=== PATIENT | male | born 1940 | race Caucasian/White ===

== ENCOUNTER 2018-06-30 17:45 | Emergency (ER) | payer MEDICARE, BC ==
[~2018-06-30] VITALS: Ht 175.3 cm; Wt 78.0 kg
[~2018-06-30 17:45] MED LIST: ALBU90OI INH; ALEVE OTC PO; AMLO5; AZIT250 PO; BECL40OI INH; BLOOD PRESSURE MED?; DOCU100 PO; DONE10 PO; DOXY100 PO; FLUC100 PO; FLUSAL1005; HYDACE5 PO; HYDHOMSY PO; HYDR1TAB94 PO; IBUP600 PO; IRBE150 PO; LEVSOD125 PO; LEVSOD150 PO; LEVSOD75; MECL25 PO; MELATONIN 5MG PO; MULTIVITAMIN PO; NYSTRI30T TOP; OXYACE5T PO; PRED20 PO; PROM25 PO; TIOT18; TRAM50 PO; VITAMIN E400 UNI1 PO; [UNRECOGNIZED DRUG - REMARK]
[2018-06-30 19:06] LABS: BASOPHILS ABSOLUTE AUTO 0.06 K/mm3 (0.00-0.23); BASOPHILS PERCENT AUTO 1 % (0-2); EOSINOPHILS ABSOLUTE AUTO 0.19 K/mm3 (0.00-0.68); EOSINOPHILS PERCENT AUTO 2 % (0-6); Hematocrit 41.9 % (37.0-53.0); Hemoglobin 13.8 g/dL (13.5-17.5); IMMATURE GRAN ABSOLUTE AUTO 0.02 K/mm3 (0.00-0.10); IMMATURE GRAN PERCENT AUTO 0 % (0-1); LYMPHOCYTES PERCENT AUTO 18 % (21-46); MONOCYTES ABSOLUTE AUTO 1.15 K/mm3 (0.16-1.47); MONOCYTES PERCENT AUTO 13 % (4-13); Mean Corpuscular HGB 29.6 pg (26.0-34.0); Mean Corpuscular HGB Conc 32.9 g/dL (31.5-36.5); Mean Corpuscular Volume 90 fL (80-100); Mean Platelet Volume 9.7 fL (9.1-12.4); NEUTROPHILS ABSOLUTE AUTO 5.93 K/mm3 (1.96-9.15); NEUTROPHILS PERCENT AUTO 66 % (41-73); Platelet Count 280 K/mm3 (150-400); RDW Coefficient Variation 14.7 % (11.7-14.2); RDW Standard Deviation 48.7 fL (35.1-46.3); Red Blood Cell Count 4.67 M/mm3 (4.30-5.90); White Blood Cell Count 8.95 K/mm3 (4.00-11.30)
[2018-06-30 19:20] LABS: Alanine Aminotransfer (ALT/SGP 18 U/L (12-78); Albumin, Blood 3.4 g/dL (3.4-5.0); Albumin/Globulin Ratio 0.9 (0.8-1.8); Alk Phos 59 U/L (50-136); Anion Gap 8 mmol/L (6-16); Aspartate Aminotrans (AST/SGOT 15 U/L (12-37); Bilirubin, Total 0.4 mg/dL (0.1-1.0); Blood Urea Nitrogen 14 mg/dL (8-24); Bun/Creatinine Ratio 11.4 (12.0-20.0); CO2, Blood 25 mmol/L (21-32); Calcium, Blood 8.6 mg/dL (8.5-10.1); Chloride, Blood 105 mmol/L (98-108); Creatinine, Blood 1.23 mg/dL (0.60-1.20); Globulin, Blood 3.8 g/dL (2.2-4.0); Glomerular Filtration Rate >60 (60-); Glucose, Blood 126 mg/dL (70-99); Potassium, Blood 3.8 mmol/L (3.5-5.5); Sodium, Blood 138 mmol/L (136-145); Total Protein, Blood 7.2 g/dL (6.4-8.2)
[2018-06-30] MEDS ORDERED: XARELTO20 MG PO (22:47)
== END 2018-06-30 23:35 | disposition home or self-care (01) ==
LOC: ER 17:45
PROVIDERS: Physician Assistant
DX: I82.C12 Acute embolism and thrombosis of left internal jugular vein (principal); J44.9 Chronic obstructive pulmonary disease, unspecified; E03.9 Hypothyroidism, unspecified; F03.90 Unspecified dementia, unspecified severity, without behavioral disturbance, psychotic disturbance, mood disturbance, and anxiety; Z88.0 Allergy status to penicillin; Z88.5 Allergy status to narcotic agent; Z79.899 Other long term (current) drug therapy; Z87.891 Personal history of nicotine dependence
CPT/HCPCS: 36415; 80053; 85025; 93971; 99284-25

== ENCOUNTER 2020-07-19 20:14 | Observation (INO) | payer MEDICARE, BC ==
[~2020-07-19] VITALS: Ht 172.7 cm; Wt 102.1 kg
[~2020-07-19 20:14] MED LIST changes: +EUTHYROX125 MCG PO; +GABA800 PO; +TYLENOL PM EX-1 EAC1; +XARELTO20 MG PO
[2020-07-19] MEDS ORDERED: QUETIAPINE FUMA50 M2 PO (20:46)
[2020-07-19 21:23] LABS: BASOPHILS ABSOLUTE AUTO 0.12 K/mm3 (0.00-0.23); BASOPHILS PERCENT AUTO 1 % (0-2); EOSINOPHILS ABSOLUTE AUTO 0.47 K/mm3 (0.00-0.68); EOSINOPHILS PERCENT AUTO 6 % (0-6); Hematocrit 43.2 % (37.0-53.0); Hemoglobin 13.6 g/dL (13.5-17.5); IMMATURE GRAN ABSOLUTE AUTO 0.02 K/mm3 (0.00-0.10); IMMATURE GRAN PERCENT AUTO 0 % (0-1); LYMPHOCYTES ABSOLUTE AUTO 1.75 K/mm3 (0.84-5.20); LYMPHOCYTES PERCENT AUTO 21 % (21-46); MONOCYTES ABSOLUTE AUTO 0.95 K/mm3 (0.16-1.47); MONOCYTES PERCENT AUTO 11 % (4-13); Mean Corpuscular HGB 26.9 pg (26.0-34.0); Mean Corpuscular HGB Conc 31.5 g/dL (31.5-36.5); Mean Corpuscular Volume 85 fL (80-100); Mean Platelet Volume 9.9 fL (9.1-12.4); NEUTROPHILS ABSOLUTE AUTO 5.07 K/mm3 (1.96-9.15); NEUTROPHILS PERCENT AUTO 61 % (41-73); Platelet Count 309 K/mm3 (150-400); RDW Coefficient Variation 16.8 % (11.7-14.2); RDW Standard Deviation 52.3 fL (35.1-46.3); Red Blood Cell Count 5.06 M/mm3 (4.30-5.90); White Blood Cell Count 8.38 K/mm3 (4.00-11.30)
[2020-07-19 21:30] LABS: Source, Urine Voided
[2020-07-19 21:33] LABS: Appearance, Urine Clear (Clear); Blood, Urine Neg (Neg); Color, Urine Amber (P-Yellow); Glucose Qualitative, Urine Neg (Neg); Ketones, Urine 1+ (Neg); Leukocyte Esterase, Urine Neg (Neg); Nitrite, Urine Neg (Neg); Protein, Urine 1+ (Neg); Specific Gravity, Urine 1.025 (1.003-1.022); Urobilinogen, Urine 1+ (Normal)
[2020-07-19 21:38] LABS: Bilirubin, Urine 1+ (Neg)
[2020-07-19 21:44] LABS: Alanine Aminotransfer (ALT/SGP 16 U/L (12-78); Albumin, Blood 3.3 g/dL (3.4-5.0); Albumin/Globulin Ratio 0.8 (0.8-1.8); Alk Phos 72 U/L (50-136); Anion Gap 5 mmol/L (6-16); Aspartate Aminotrans (AST/SGOT 13 U/L (12-37); Bilirubin, Total 0.3 mg/dL (0.1-1.0); Blood Urea Nitrogen 16 mg/dL (8-24); Bun/Creatinine Ratio 11.9 (12.0-20.0); CO2, Blood 25 mmol/L (21-32); Calcium, Blood 8.4 mg/dL (8.5-10.1); Chloride, Blood 110 mmol/L (98-108); Creatinine, Blood 1.35 mg/dL (0.60-1.20); Ethanol (Alcohol), Blood, Med <3 mg/dL; Globulin, Blood 4.1 g/dL (2.2-4.0); Glomerular Filtration Rate 54 (60-); Glucose, Blood 136 mg/dL (70-99); Potassium, Blood 3.9 mmol/L (3.5-5.5); Salicylate <1.7 mg/dL (2.8-20.0); Sodium, Blood 140 mmol/L (136-145); Total Protein, Blood 7.4 g/dL (6.4-8.2)
[2020-07-19 21:45] LABS: U Amphetamine Screen Not Detected; U Barbituate Screen Not Detected; U Benzodiazapine Screen Not Detected; U Buprenorphine Screen Not Detected; U Cannabinoids Screen Not Detected; U Cocaine Screen Not Detected; U Methadone Screen Not Detected; U Methamphetamine Screen Not Detected; U Opiates Screen Not Detected; U Oxycodone Screen Not Detected; U Phencyclidine Screen Not Detected; U Propoxyphene Screen Not Detected
[2020-07-19 21:46] LABS: Acetaminophen, Random <2.0 ug/mL (10.0-30.0)
--- NOTE | 2020-07-20 04:40 | NUR ---
BOTTOM TURNER SUMMARY ASSUMED CARE FOR PT AT 0255. ALERT AND ORIENTED TO SELF ONLY. AMBULATING IN [place] ON ARRIVAL, DIFFICULT TO REDIRECT TO ROOM. CURRENTLY SITTING NEXT TO NURSES STATION, EATING FOOD AND READING MAGAZINE. APPEARS CALM AT THIS TIME. NO ACUTE DISTRESS NOTED. WILL CONTINUE TO MONITOR AND REPORT TO ONCOMING RN.
[2020-07-20 09:36] LABS: BASOPHILS ABSOLUTE AUTO 0.13 K/mm3 (0.00-0.23); BASOPHILS PERCENT AUTO 1 % (0-2); EOSINOPHILS ABSOLUTE AUTO 0.42 K/mm3 (0.00-0.68); EOSINOPHILS PERCENT AUTO 4 % (0-6); Hematocrit 44.8 % (37.0-53.0); Hemoglobin 14.1 g/dL (13.5-17.5); IMMATURE GRAN ABSOLUTE AUTO 0.01 K/mm3 (0.00-0.10); IMMATURE GRAN PERCENT AUTO 0 % (0-1); LYMPHOCYTES ABSOLUTE AUTO 3.18 K/mm3 (0.84-5.20); LYMPHOCYTES PERCENT AUTO 31 % (21-46); MONOCYTES ABSOLUTE AUTO 1.11 K/mm3 (0.16-1.47); MONOCYTES PERCENT AUTO 11 % (4-13); Mean Corpuscular HGB 26.9 pg (26.0-34.0); Mean Corpuscular HGB Conc 31.5 g/dL (31.5-36.5); Mean Corpuscular Volume 85 fL (80-100); Mean Platelet Volume 9.8 fL (9.1-12.4); NEUTROPHILS ABSOLUTE AUTO 5.46 K/mm3 (1.96-9.15); NEUTROPHILS PERCENT AUTO 53 % (41-73); Platelet Count 341 K/mm3 (150-400); RDW Coefficient Variation 16.5 % (11.7-14.2); RDW Standard Deviation 51.8 fL (35.1-46.3); Red Blood Cell Count 5.25 M/mm3 (4.30-5.90); White Blood Cell Count 10.31 K/mm3 (4.00-11.30)
[2020-07-20 09:52] LABS: Albumin, Blood 3.7 g/dL (3.4-5.0); Albumin/Globulin Ratio 0.8 (0.8-1.8); Bilirubin, Total 0.5 mg/dL (0.1-1.0); Bun/Creatinine Ratio 11.6 (12.0-20.0); Calcium, Blood 8.7 mg/dL (8.5-10.1); Creatinine, Blood 1.29 mg/dL (0.60-1.20); Globulin, Blood 4.5 g/dL (2.2-4.0); Total Protein, Blood 8.2 g/dL (6.4-8.2)
[2020-07-20] MEDS ORDERED: TAMS.4ER PO (14:01)
--- NOTE | 2020-07-20 17:36 | NUR ---
PT AOX1 AND INDEPENDENT WALKING AROUND. PT NEEDS REDIRECTED MULTIPLE TIMES THROUGHOUT THE DAY. PT SPENT MOST OF HIS TIME SITTING IN THE [place] IN A CHAIR. PT WILL NOT SAY HE NEEDS THE RESTROOM AND WILL START WALKING AROUND MORE. RESTROOM HAS TO BE SHOWN TO HIM AND HE HAS TO BE ASKED MULTIPLE TIMES IF HE HAS TO USE IT. PT HAS TROUBLE STAYING IN ONE SPOT AND WANT TO WANDER AROUND. PT HAS TO BE REDIRECTED FROM WALKING INTO ROOMS. PT DOES NOT SAY HE IS IN PAIN. WILL CONTINUE TO MONITOR.
--- NOTE | 2020-07-20 18:24 | NUR ---
PT IS SUNDOWNING AND GETTING MORE AGITATED. PT IS FOLDING THINGS AND GETTING UP AND DOWN MORE. CALLED DR BECERRIL AND SHE ORDERED PRN DOSE OF SEROQUEL TO BE ADDED TO EMAR. PT HAS BEEN GIVEN NEW DOSE WILL CONTINUE TO MONITOR.
--- NOTE | 2020-07-21 03:52 | NUR ---
SHIFT SUMMARY ASSUMED CARE OF PT AT 1900. PT IS A/O TO NONE. PT IS NOT EASILY REDIRECTED. PT WONDERED THE HALLS AT THE BEGINNING OF THE SHIFT AND THEN LAYED DOWN FOR 1 HOUR, THEN HE PROCEEDED TO GET UP AND FIDGET WITH EVERYTHING IN HIS ROOM. PT WAS MEDICATED WITH HIS PM SEROQUEL, CRUSHED IN PUDDIN, AND HALDOL. THIS WAS INEFFECTIVE AND PT BECAME UN-SAFE TO HIMSELF WHEN HE WOULD TURN ON THE FAUCET WTER AND WALK ON THE WATER. PT WAS RESTRAINED WITH A VEST FOR HIS SAFETY AND MEDICATED WITH ZYPREXA. PT IS STILL AGITATED AND PULLING AT HE MARK AND ATTENDS. PT HAS NOT SLEPT AT ALL THIS WHOLE SHIFT. HEART SOUNDS REGULAR, LUNG SOUNDS HAVE CRAKELS AT HE BASES. PT WAS CONTINENT/ INCONTINENT. PT BLADDER SCANNED TO SEE IF THIS IS WHY HE WAS AGITATED, BLADDER SCAN SHOWS 99ML. PT DRANK 480ML WATER AT BEDSIDE. PT FREQUENTLY REPOSITIONED FOR COMFORT. PT BLE ARE EDEMADOUS AND HAVE FLAKY DRY SKIN ON THEM, ONCE PT WAS IN BED, THE EDEMA DECREASED SLIGHTLY. CALL LIGHT IN REACH, BED IN LOWEST POSTION, BED ALARM ON, CAMERA MONITORING IN PROGRESS.
--- NOTE | 2020-07-21 16:41 | NUR ---
SHIFT SUMMARY PATIENT DENIES PAIN, NAUSEA, AND HSORTNESS OF BREATH. PATIENT UP SBA INROOM. PATIENT ORIENTED TO SELF ONLY. IMPULSIVE AND ATTEMPTS TO WANDER FREQUENTLY. MARK DISCONTINUED AT 0800. PRN SEROQUEL FOR AGITATION THIS AFTERNOON.
--- NOTE | 2020-07-22 04:33 | NUR ---
SHIFT SUMMARY ASSUMED CARE OF PT AT 1900. PT IS ALERT BUT NOT ORIENTED AT ALL. PT IS DIFFICULT TO REDIRECT AND GETS OUT OF BED AND HIS CHAIR REPEATIVLY. NIGHTLY DOSE OF SERIQUEL GIVEN, WHICH MADE THE PATIENT MORE CALM THAN YESTERDAY BUT PT BECAME AGITATED AGAIN AND STARTED TO GET OUT OF BED. PT BECAME ANGRY WITH STAFF WHEN REDIRECTED AND WAS PUT IN A MARK VEST AT 2230 TO PREVENT A FALL AND TO DECREASE TENSION WITH STAFF. HOSPITALIST AND CHARGE NURSE NOTIFED. PT WAS ABLE TO REST EASY IN HIS BED AFTER THE RESTRAINT WAS PUT ON. PT MUMBLED AND TALKED TO HIMSELF AND WAS CALM. PT WAS FINALLY ABLE TO SLEEP AT 0430 IN THE AM. LUNG SOUNDS CLEAR, HEART SOUNDS REGULAR. CALL LIGHT IN REACH, BED IN LOWEST POSTION, BED ALARM ON.
--- NOTE | 2020-07-22 15:50 | NUR ---
BED, MARK IN PLACE, CALL LIGHT IN REACH.
--- NOTE | 2020-07-22 16:58 | NUR ---
SHIFT SUMMARY PATIENT ORIENTED ONLY TO SELF. PATIENT DENIES PAIN WHEN ASKED, SHOWS NO NON VERBAL SIGNS OF DISTRESS. PATIENT UP TO BR SBA AND UP FOR WALK IN HALLWAY. PATIENT IN MARK FOR FALL RISK. EATING AND DRINKING WELL. VISITED BRIEFLY TODAY.
--- NOTE | 2020-07-23 05:13 | NUR ---
SHIFT SUMMARY PT HAS ADVANCED DEMENTIA. ALERT TO SELF ONLY. SPEECH IS NONSENSICAL. PT REMAINS IN MARK VEST HE IS CONFUSED AND NOT EASILY REDIRECTED AND WILL NOT REMAIN IN BED. PT AWAKE MUCH OF THE NIGHT. FIDGETS WITH ANYTHING HE CAN GET HIS HANDS ON. INCONTINENT X 1 THIS EVENING OTHERWISE HAS NOT VOIDED. DENIES ANY PAIN, NO NONVERBAL S/S OF PAIN. VITAL SIGNS STABLE. AWAITING PLACEMENT. WILL CONTINUE TO MONITOR AND REPORT TO DAY RN.
--- NOTE | 2020-07-23 18:18 | NUR ---
SHIFT SUMMARY. LETHARGIC THIS AM, APPEARED TO SLEEP MOST OF THE AM, AWAKENS WITH VERBAL STIMULATION. MORE ALERT THIS AFTERNOON, DISORIENTATED, UNABLE TO ANSWER ANY QUESTIONS. CONTINUES TO ATTEMPT TO GET OOB WITHOUT ASSITANCE, FOUND WITH LEGS OVER SIDE OF BED SEVERAL TIMES THIS AFTERNOON. BED ALARM AND MARK RESTRAINT VEST CONTINUED FOR SAFETY. PT WITH POOR ORAL INTAKE, ASSISTANCE REQUIRED WITH EATING MEALS ALTHOUGH PT REFUSES MORE THAN JUST A FEW BITES. PT REFUSED MOST ATTEMPTS OF ORAL CARE BY WOOD DIE MAKER AND THIS RN. PT WITH COARSE/CRACKLES IN THE MID TO LOWER LOBES BILATERALY, PT WITH ELEVATED TEMPERATURE THIS EVENING, DR. BECERRIL NOTIFIED AND RECIEVED ORDERS FOR CXR-1V, APAP 650 PO Q6 PRN, AND ST EVAL. PT WITH NO VOID THIS SHIFT, BLADDER SCANNED AT APPROXIMATELY 1400 WITH 230ML OBSERVED. 1800 BLADDER SCAN REPEATED, 600 ML OBSERVED, STRAIGHT CATH PERFORMED AND 600ML DRAINED. NO FAMILY IN TO VISIT OR CALLS. NO OTHER CHANGES OR CONCERNS.
--- NOTE | 2020-07-23 19:40 | NUR ---
ASSUMED CARE. ALERT ORIENTED TO SELF ONLY, MUBLES TO SELF, DOES NOT RESPOND WHEN ASKED QUESTIONS. IS PLAYING WITH SHEET, TALKING TO OTHER PEOPLE THAT ARE NOT IN THE ROOM. DOES NOT FOLLOW DIRECTION. IS QUIET AND APPEARS CONTENT WITH SELF. NO SIGNS OF DISCOMFORT OR PAIN WHEN MOVING PATIENT OR PALPITATING. ATTENDS IS DRY. LUNG SOUNDS ARE HARD TO HEAR DO TO PATIENT NOT FOLLOWING DIRECTIONS AND TALKS TO SELF, BUT SOUNDED LIKE FINE CRACKLES IN BASES. COUGH IS NOTED, DRY AT THIS TIME. RESTRAINTS CHECKED WITH CIRCULATION CHECKED. WILL CONTINUE TO MONITOR. BED ALARM IS ON.
--- NOTE | 2020-07-23 22:24 | NUR ---
JAXON WAS SCOOTED DOWN IN BED, REPOSITIONED UP IN BED, RESTRAINTS WERE RE-TIED. STILL TALKING TO SELF BUT APPEARS HE IS STARTING TO FALL ASLEEP. BED ALARM IS ON. FOUND HIS GLASSES IN THE BED, HE HAD BROKE ONE OF THE EAR PEICES OFF OF IT, FOUND IT UNDERNEATH HIM. PLACED ON TABLE IN BAG.
--- NOTE | 2020-07-24 00:33 | NUR ---
ROUNDING ON THE PATIENT, HE HAD THE CONTROLLER IN HIS HAND WITH EYES CLOSED AND TRYING TO EAT IT. PUT IT UP BY HIS HEAD AND REPOSITIONED HIS RESTRAINTS, CIRCULATION CHECKED. TUCKED COVERS AROUND HIM TO KEEP HIM WARM. WILL CONTINUE TO MONITOR.
--- NOTE | 2020-07-24 05:53 | NUR ---
SHIFT SUMMARY: ALERT ORIENTED TO SELF ONLY. SEVERE DEMENTIA, TALKS TO SELF HAS VISUAL HULLUCINATIONS, MUMBLES ALL THE TIME, MESSING WITH HIS ATTENDS AND BLANKETS. DOES NOT FOLLOW DIRECTIONS OR REDIRECT. NO SIGNS OF PAIN OR DISCOMFORT. VS WNL, AFEBRILE. BLADDER SCAN X2 ONE 175, AND 875 THIS AM. STRAIGHT CATH X1 GOT 900CC OUT. SLEPT WELL THROUGHOUT THE NIGHT. RESTRAINTS REMAINED ON. DID HAVE SOME GURGLING THIS MORNING LIKE HE NEEDED TO COUGH, EVENTUALLY HE DID CLEAR HIS THROAT AFTER SITTING HIM UP. BED ALARM ON, CALL LIGHT IN REACH.
--- NOTE | 2020-07-24 07:58 | NUR ---
PT ON REMOTE MONITORS CONFIRMED WITH ABEL LAMB THAT PT IS VISIBLE ON MONITORS.
--- NOTE | 2020-07-24 18:39 | NUR ---
SHIFT SUMMARY PT AxOx0. SEVERE DEMENTIA. MARK VEST RESTRAINT DC'D THIS AM. PT TOLERATED WELL. NO IMPULSIVE BEHAVIOR. SPEECH EVAL TODAY. CHANGED DIET TO PUREE, NECTAR THICK LIQUIDS WITH A FEEDER. PT UP IN RECLINER x2 TODAY. SBA. PT REFUSED RAMONITA HOSE. NO URINE OUTPUT T/O SHIFT. MONITORED VIA BLADDER SCANNER AND STRAIGHT CATH PER ORDER AT APPROX 1830 WITH 600CC URINE OUTPUT. VITAL SIGNS REVIWED. PT RESTING COMFORTABLY IN BED WITH CALL LIGHT IN REACH.
--- NOTE | 2020-07-24 19:50 | NUR ---
ASSUMED CARE. JAXON IS CONFUSED, TALKING TO SELF IN CONVERSATION THAT IS ALL OVER THE PLACE. APPEARS TO BE VERY CONTENT IN HIS CONVERSATION. DOES NOT ANSWER QUESTIONS OR FOLLOWS DIRECTION. LUNG SOUNDS ARE CRACKLES THROUGHOUT, OCCATIONAL COUGH, NO PRODUCTION. SUCTION IS AT BEDSIDE. SKIN DRY BUT CLEAR OF ANY WOUNDS OR RASHES. ATTENDS DRY. WILL BLADDER SCAN. BED ALARM ON.
--- NOTE | 2020-07-25 00:54 | NUR ---
BLADDER SCAN IS READING THE SAME PREVIOUS PATIENT THAT WAS SCANNED. STRAIGHT CATHED PATIENT, GOT 550 OUTPUT. BLADDER SCAN ONLY SHOWED 420.
--- NOTE | 2020-07-25 05:55 | NUR ---
SHIFT SUMMARY: JAXON HAS BEEN PLEASANTLY CONFUSED, KEEPING SELF CONTENT IN THE ROOM WITH HIS HULLUCINATIONS. NEVER TRIED TO GET OUT OF BED. TOOK HIS MEDICATION WITH APPLESAUCE. NO BM, ATTENDS REMAINED DRY. BLADDER SCANS 447, 419 BUT DID NOT BELEIVE SECOND SCAN, THEREFORE DID STRAIGHT CATH AND GOT 550 OUT OF YELLOW URINE. SCAN THIS AM WAS 75. JAXON SLEPT WELL, NO ACUTE CHANGES, VS WNL. BED ALARM IS ON, CALL LIGHT IN REACH.
--- NOTE | 2020-07-25 17:57 | NUR ---
PATIENT IS VERY CONFUSED AND DISORIENTED. FEVER NOTED THIS EVENING @ 101.3, TYLENOL ADMINISTERED. MAX 2 ASSIST WITH TRANSFERS. PATIENT CONTINUES TO RETAIN URINE; STRAIGHT CATH'ED AND GOT 350cc. PATIENT SITTING UPRIGHT AT THIS TIME, SAFETY INTERN ASSISTING PATIENT WITH HIS DINNER AT THIS TIME. NO OTHER ACUTE CHANGES NOTED THIS SHIFT. WILL CONTINUE TO MONITOR AND PROVIDE CARE NEEDED.
--- NOTE | 2020-07-26 05:12 | NUR ---
SHIFT SUMMARY: VSS. AFEB. AAO TO SELF. TALKS TO SELF ALMOST CONTINUOUSLY WHILE AWAKE. LAUGHS OCCASIONALLY DURING HIS RUNNING COMMENTARY. SPEECH GARBLED AND DIFFICULT TO UNDERSTAND. DOES NOT RESPOND TO QUESTIONS. DEMONSTRATES R ARM PAIN W/ANY MOVEMENT OF THE ARM. REMAINS IN BED W/NO ATTEMPTS TO SELF T/F. BED ALARM ON AND CAMERA MONITORING IN PLACE. DYSPHAGIA PRECAUTIONS. LS W/ RHONCHI BILATERALLY AND DIM BASES. 02 95% ON RA. APPEARS TO HAVE SLEPT WELL THROUGH MUCH OF THE NIGHT. NO VOID OF YET, BLADDER SCAN SHOWED 170CC AT 0200.
--- NOTE | 2020-07-26 18:38 | NUR ---
SHIFT SUMMARY PT HAS BEEN SLEEPING ON AND OFF THROUGH DAY. OCC HEARD TALKING TO HIMSELF IN HIS ROOM. QUITE HARD OF HEARING. HIT AND MISS WITH FOLLOWING DIRECTIONS. AT SUPPERTIME PT AWAKE AND ALERT. DID SOUND WET A FEW TIMES DURING MEAL. WHEN ENCOURAGED TO COUGH MOISTURE WOULD REOLVE. AT END OF MEAL VOICE AND BREATHING SOUNDED CLEAR.
--- NOTE | 2020-07-27 05:14 | NUR ---
SHIFT SUMMARY: VSS. AFEB. AAOX1. PT MORE INTERACTIVE TONIGHT, RESPONDING TO QUESTIONS AND DIRECTIONS. VERBAL RESPONSE CONT TO BE GARBLED AND DIFFICULT TO UNDERSTAND HOWEVER. CONT TO TALK TO SELF WHILE AWAKE AND LAUGH OCC IN RESPONSE TO HIS OWN STATEMENTS. RESISTANT TO TURNS. NO VOID TONIGHT. BLADDER SCAN SHOWED 201CC. RHONCHI AUSC TO B LOBES, BASES DIM. PRODUCTIVE COUGH. SUCTION USED TO HELP CLEAR. SMALL AMT OF YELLOW SPUTUM OUT. ORAL CARE PERFORMED. NO COUGHING WHILE PT WAS UPRIGHT EATING APPLESAUCE. 02 SAT 96% ON RA. APPEARS TO BE SLEEPING WELL THROUGH MUCH OF THE NIGHT. BED LOW, BED ALARM ON, CAMERA MONITORING IN PLACE.
--- NOTE | 2020-07-27 17:47 | NUR ---
SHIFT SUMMARY PT AXO X0 AND SOLOMON. SLEEPING HEAVILY THROUGHOUT THE DAY. REPOSITIONED Q2. BLADDER SCAN AT 1240, STRAIGHT CATH AT THAT TIME, 800ML OUT. NO ACUTE CHANGES THIS SHIFT. BED IN LOW POSITION, CALL LIGHT WITHIN REACH. VSS. PT RIGHT ARM PAINFUL ONLY WITH REPOSITIONING.
[2020-07-28 05:51] LABS: BASOPHILS ABSOLUTE AUTO 0.08 K/mm3 (0.00-0.23); BASOPHILS PERCENT AUTO 1 % (0-2); EOSINOPHILS ABSOLUTE AUTO 0.24 K/mm3 (0.00-0.68); EOSINOPHILS PERCENT AUTO 3 % (0-6); Hematocrit 38.5 % (37.0-53.0); Hemoglobin 12.1 g/dL (13.5-17.5); IMMATURE GRAN ABSOLUTE AUTO 0.01 K/mm3 (0.00-0.10); IMMATURE GRAN PERCENT AUTO 0 % (0-1); LYMPHOCYTES ABSOLUTE AUTO 1.63 K/mm3 (0.84-5.20); LYMPHOCYTES PERCENT AUTO 21 % (21-46); MONOCYTES PERCENT AUTO 15 % (4-13); Mean Corpuscular HGB 26.9 pg (26.0-34.0); Mean Corpuscular HGB Conc 31.4 g/dL (31.5-36.5); Mean Corpuscular Volume 86 fL (80-100); Mean Platelet Volume 10.3 fL (9.1-12.4); NEUTROPHILS ABSOLUTE AUTO 4.74 K/mm3 (1.96-9.15); NEUTROPHILS PERCENT AUTO 60 % (41-73); Platelet Count 312 K/mm3 (150-400); RDW Coefficient Variation 16.3 % (11.7-14.2); RDW Standard Deviation 51.8 fL (35.1-46.3)
[2020-07-28 06:44] LABS: Alanine Aminotransfer (ALT/SGP 29 U/L (12-78); Albumin, Blood 2.3 g/dL (3.4-5.0); Albumin/Globulin Ratio 0.5 (0.8-1.8); Alk Phos 57 U/L (50-136); Anion Gap 3 mmol/L (6-16); Aspartate Aminotrans (AST/SGOT 34 U/L (12-37); Bilirubin, Total 0.3 mg/dL (0.1-1.0); Blood Urea Nitrogen 22 mg/dL (8-24); Bun/Creatinine Ratio 18.8 (12.0-20.0); CO2, Blood 29 mmol/L (21-32); Calcium, Blood 8.4 mg/dL (8.5-10.1); Chloride, Blood 105 mmol/L (98-108); Creatinine, Blood 1.17 mg/dL (0.60-1.20); Globulin, Blood 4.4 g/dL (2.2-4.0); Glomerular Filtration Rate >60 (60-); Glucose, Blood 102 mg/dL (70-99); Potassium, Blood 4.2 mmol/L (3.5-5.5); Sodium, Blood 137 mmol/L (136-145); Total Protein, Blood 6.7 g/dL (6.4-8.2)
--- NOTE | 2020-07-28 06:48 | NUR ---
BLADE GROOVER SUMMARY PT A/O X0. VERY HO-CHUNK. SLEPT MOSTLY ALL NIGHT. DENIES PAIN. PT BLADDER SCANNED AND STRAIGHTED CATHED TONIGHT. VSS. PT'S RIGHT ELBOW IS RED, SWOLLEN, AND WARM TO TOUCH. DENIES PAIN TO SITE. HOSPITALIST DR. BECERRIL NOTIFIED, US OF R ELBOW ORDERED.
--- NOTE | 2020-07-28 18:22 | NUR ---
SHIFT SUMAMRY: NO ACUTE CHANGES TO REPORT THIS SHIFT. PT A&O X0 SLEEPING T/O SHIFT; TOO DROWSY TO SAFELY ADMINISTER PO MEDS. ASPIRATION PRECAUSTIONS. AWAITING PLACEMENT.
--- NOTE | 2020-07-29 04:51 | NUR ---
GUN NUMBER SUMMARY PT SLEPT WELL ALL NIGHT. A/O X0. NURSE HELD BEDTIME MEDS GABAPENTIN AND SEROQUEL DUE TO DROWNSINESS. PT IS AROUSIBLE TO VOICE. REPOSITIONED THROUGHOUT THE NIGHT. VSS. BLADDER SCANNED AT 0355 WITH 114ML IN BLADDER. NO ACUTE CHANGES.
--- NOTE | 2020-07-29 19:01 | NUR ---
SHIFT SUMMARY: NO ACUTE CHANGES TO REPORT THIS SHIFT. PT ALERT; ORIENTED TO SELF; COOPERATIVE WITH CARE. BLADDER SCAN THIS SHIFT; >750 RESIDUAL; STRAIGHT CATH X1; 1050ML OUT; HOSPITALIST NOTIFIED; NEW ORDER FOR FLOMAX BID. PT UP TO CHAIR c 2-ASSIST. ASPIRATION PRECAUTIONS. AWAITING PLACEMENT. REPORT GIVEN TO ONCOMING RN.
--- NOTE | 2020-07-30 06:21 | NUR ---
HEALTH CARE MARKETING MANAGER SUMMARY PT A/O X0. SLEPT ALL NIGHT TONIGHT. Q2 REPOSITIONG PROVIDED. RIGHT ELBOW ELEVATED ON PILLOW TO HELP DECREASE SWELLING. BLADDER SCANNED AND STRAIGHT CATHED THIS SHIFT. BED ALARM ON, CALL MURPHY WITHIN REACH, CAMERA MONITORED. WILL GIVE REPORT TO AM RN.
--- NOTE | 2020-07-30 17:54 | NUR ---
SHIFT SUMMARY- PT HAS SLEPT FOR MOST OF THIS SHIFT. HE HAS BEEN TAKING HIS MEDICATIONS WELL. HIS APPETITE IS POOR. HE DID NOT VOID THIS SHIFT BUT BLADDER SCANS SHOWED LESS THAN 250 ML.
--- NOTE | 2020-07-31 06:08 | NUR ---
SUMMARY: PT CONFUSED AND DOESN'T ANSWER Q'S APPROPRIATELY BUT IS ABLE TO SPECIFY SOME NEEDS. TYLENOL WAS RECIEVED PRN FOR C/O OF BACK PAIN FOR GOOD EFFECT. TURN SCHEDULE MAINTAINED D/T BEDREST BUT PT REMAINS STIFF AND RESISTANT TO REPOSITIONING. MEDS TOLERATED CRUSHED IN APPLESAUCE AND FLUIDS ENCOURAGED WHEN STAFF IN ROOM. HE DIDN'T VOID TONIGHT BUT BLADDER SCANS WERE BETWEEN 276-366 MLS W/STRAIGHT CATH NOT NECESSARY PER ORDERS TO DO SO FOR BLADDER SCAN >400 MLS. HE SLEPT MAJORITY OF NOCTE. VSS/AFEBRILE. NO ACUTE CHANGES. [facility], FAMILY PLANS TO ATTEND. WILL ENSURE DAY STAFF ARE AWARE AND REPORT TO DAY RN.
--- NOTE | 2020-07-31 17:24 | NUR ---
SHIFT SUMMARY- PT IS PLESANT AND COOPERATIVE. HE HAS SLEPT FOR MUCH OF THIS SHIFT. HIS BLADDER SCAN WAS ELEVATED. MEETING WITH [facility] TODAY WITH FAMILY. PT ENCOURAGED SEVERAL TIMES TO VOID AND WAS UNSUCCESSFUL. STRAIGHT CATH PREFORMED. APPETITE IS POOR. HE WAS UP TO THE CAIR THIS AFTERNOON.
--- NOTE | 2020-08-01 02:40 | NUR ---
PT HASN'T VOIDED YET THIS SHIFT. BLADDER SCAN WAS 236 MLS BUT NO NEED TO STRAIGHT CATH AT THIS TIME PER PARAMETERS TO DO SO WHEN SCAN >400 MLS.
--- NOTE | 2020-08-01 05:04 | NUR ---
SUMMARY: PT CONFUSED AND SLEPT MAJORITY OF NOCTE. HE DOESN'T ANSWER Q'S APPROPRIATELY BUT IS ABLE TO CONVEY SOME VERY BASIC NEEDS. HE AWOKE FOR PT CARE/ADL'S AND MED ADMINISTRATION. PT TOLERATES PILLS CRUSHED IN APPLESAUCE. TURN SCHEDULE MAINTAINED AND PT IS STIFF/RIGID W/REPOSITIONING. HE DENIED PAIN AND ALL OTHER COMPLAINTS. STAFF ATTEMPTED TO ASSIST PT W/URINAL AND ENCOURAGED VOIDING BUT HE CONT'S TO LACK SENSATION AND/OR ABILITY TO VOID. BLADDER SCAN WAS [address]CATH NOT REQUIRED PER RX TO DO SO WHEN >400 MLS. SCROTUM CONT'S SWOLLEN AND CELLULITIS TO R.ELBOW SEEMS TO BE IMPROVING. NO ACUTE CHANGES, VSS/AFEBRILE. WCTM AND REPORT TO DAY RN.
--- NOTE | 2020-08-01 15:22 | NUR ---
PATIENT IS ALERT. HE IS CONFUSED. HIS SPEECH IS NON-SENSICAL. PATIENT IS A FEEDER, PUREE DIET. BLADDER SCAN IS ORDERED ONCE A SHIFT, WHICH SHOWED OVER 400ML URINE. PATIENT WAS STRAIGHT CATHED THIS MORNING. PATIENT IS UP TOT HE CHAIR FOR ALL MEALS. HE IS IN BED AT THIS TIME. WILL CONTINUE TO MONITOR
--- NOTE | 2020-08-01 17:38 | NUR ---
PATIENT IS ALERT. HIS SPEECH IS NONSENSICAL. HE IS A 2PA UP TO THE RECLINER. BLADDER SCAN AT 1730 SHOWED 117ML OF URINE. VITALS ARE WNL. NO COMPLAINTS OF PAIN. PATIENT HAS NOT TRIED TO GET OUT OF BED OR THE CHAIR ON HIS OWN. WILL CONTINUE TO MONITOR
--- NOTE | 2020-08-02 03:45 | NUR ---
SHIFT SUMMARY PATIENT HAD NO ACUTE CHANGES OBSERVED. AXOX TO SELF WITH NON-SENSICAL SPEECH. NO IV ACCESS. TWO ASSIST TO BSC. VSS/AFEBRILE. DENIES PAIN, SOB, AND N/V. NO BED EXIT ALARM ATTEMPTS. CALL LIGHT IN REACH. BED IN LOWEST POSITION. WILL CONTINUE TO MONITOR UNTIL DAY SHIFT NURSE ASSUMES CARE.
--- NOTE | 2020-08-02 18:25 | NUR ---
PATIENT IS ALERT. HE IS CONFUSED. HIS SPEECH IS NONSENSICAL. PATIENT IS EASILY REDIRECTABLE. PATIENT IS RETAINING URINE. BLADDER SCAN THIS SHIFT SHOWED 584 ML AND 550 ML URINE. THE PATIENT WAS STRAIGHT CATHED TWICE TODAY. PATIENT SPENT A LOT FO HIS TIME UP IN THE RECLINER. 2PA TO TRANSFER. WILL CONTINUE TO MONITOR
--- NOTE | 2020-08-02 21:58 | NUR ---
HAVING VISUAL HALLUCINATIONS ON THE MARLEY AT THIS TIME.
--- NOTE | 2020-08-03 04:42 | NUR ---
SHIFT SUMMARY PATIENT HAD NO ACUTE CHANGES OBSERVED. AXOX TO SELF WITH NONSENSICAL SPEECH. TAKES MEDICATION CRUSHED IN APPLE SAUCE. TWO ASSIST TO BSC. NO IV ACCESS. VSS/AFEBRILE. DENIES PAIN, SOB, AND N/V. SLEPT MOST TO THE SHIFT. CALL LIGHT LIGHT IN REACH. BED IN LOWEST POSITION. WILL CONTINUE TO MONITOR UNTIL DAY SHIFT NURSE ASSUMES CARE.
--- NOTE | 2020-08-03 19:20 | NUR ---
SHIFT SUMMARY DENIED PAIN THIS SHIFT. REQUIRED STRAIGHT CATH IN MORNING, AND THEN URINATED IN URINAL IN AFTERNOON. R ELBOW SHOWS SOME EDEMA, DR COLLINS AWARE. ASP PRECAUTIONS FOLLOWED, NECTAR THICK LIQUIDS, MEDS CRUSHED IN APPLESAUCE. A/OX1. AO1 TO CHAIR.
--- NOTE | 2020-08-04 05:41 | NUR ---
SHIFT SUMMARY: VSS. AFEB. AAOX1. SPEECH IS MOSTLY INCOHERENT BUT OCCASIONALLY CLEAR AND WILL ANSWER QUESTIONS AT TIMES. MED FOR SUSPECTED PAIN X 1 DUE TO RESTLESSNESS. PT WAS ABLE TO SLEEP FOR MOST OF THE NIGHT. URINARY RETENTION, NO VOID TONIGHT. BLADDER SCAN SHOWS >602 CC, STRAIGHT CATH RESULTED IN 600CC'S CLEAR URINE OUT. PT [place] WELL. NO ACUTE CONCERNS AT THIS TIME.
--- NOTE | 2020-08-04 19:22 | NUR ---
SHIFT SUMMARY JAXON DENIED PAIN THIS SHIFT. GOOD APPETITE WITH ASSIST OF PUREED CARDIAC DIET AND NECTAR THICK. MEDS CRUSHED IN APPLESAUCE, DID WELL WITH THESE. TOILETED REGULARLY AND CONTINUALLY ABLE TO URINATE STANDING UP AT BATHROOM, PVR 147.
--- NOTE | 2020-08-05 04:44 | NUR ---
SHIFT SUMMARY: VSS. AFEB. DENIES PAIN. AA0X1. MUMBLING WORDS INCOHERENTLY TO SELF, BUT WILL OCC. SPEAK CLEARLY AND APPROPRIATELY IN RESPONSE TO STAFF QUESTIONS. STAND PIVOT T/F W/2 MAX ASSIST AND GAIT BELT TO GET BACK INTO BED FROM RECLINER TONIGHT. NO VOID SO FAR- BLADDER SCAN SHOWS 242 CC'S. PT SLEEPING WELL MOST OF NIGHT. NO ACUTE CHANGES AT THIS TIME. WILL CONT TO MONITOR.
--- NOTE | 2020-08-05 17:45 | NUR ---
SHIFT SUMMARY PATIENT ALERT AND ORIENTED TO SELF THIS SHIFT. PATIENT UP IN THE RECLINER MUCH OF THIS SHIFT. PATIENT CONTINUOUSLY FIDGETING WITH CLOTHING. PATIENT DIFFICULT TO DIRECT AND WITHOUT SIGNIFICANT ORIENTATION THIS SHIFT. PATIENT UP TO BED MID AFTERNOON AND STRAIGHT CATHED PER ORDERS WITH BLADDER SCAN > 500 ML. CATH OUTPUT OF 700 MLS. PATIENT TOLERATED WELL. PATIENT CURRENTLY SITTING UP IN BED WATCHING TELEVISION.
--- NOTE | 2020-08-06 05:33 | NUR ---
SHIFT SUMMARY: VSS. AFEB. AAOX1. KEEPING BUSY W/ STRING AND ZIPPER APRON. CONTENT IN ROOM AND FREQUENTLY TALKS TO SELF INCOHERENTLY. WILL SPEAK CLEARLY W/STAFF OCC WELL. DENIES PAIN. REMAINED IN BED TONIGHT. RHONCHI AUSCULTATED INTERMITTENTLY, CLEARS W/ COUGH. NO SOB. 02 95% ON RA. DYSPHAGIA PRECAUTIONS IN PLACE. NO VOID TONIGHT, BLADDER SCAN SHOWS 282 CC'S. NO ACUTE CONCERNS TONIGHT.
--- NOTE | 2020-08-06 15:31 | NUR ---
HOME HEALTH CLINICIAN 2 STUDENT
--- NOTE | 2020-08-06 17:36 | NUR ---
SHIFT SUMMARY- PT A/OX1, SELF ONLY. PT HAS BEEN PLEASANT AND COOPERATIVE T/O THE DAY. PT UP TO CHAIR WITH 2 MINIMAL ASSIST. LS CLEAR, ON RA. HRR. PACER TO LEFT CHEST. 1+ BLE EDEMA, RAMONITA HOSE IN PLACE. PT WITH BLADDER SCAN OF 1067, 1400ML OUT VIA STRAIGHT CATH AT 1650, PT TOLERATED WELL. PT SPOUSE IN TO SEE PT TODAY. PT AWAKE T/O THE DAY AND WOULD KEEP SELF BUSY WITH THE BUSY VEST. PT AWAITING PLACEMENT. NO OTHER ACUTE CHANGES THIS SHIFT.
--- NOTE | 2020-08-07 04:22 | NUR ---
BINGO CALLER SUMMARY ALERT AND ORIENTED TO SELF ONLY. SPEECH IS DIFFICULT TO UNDERSTAND AT TIMES. APPEARED TO SLEEP T/O THE NIGHT. DENIES PAIN. BREATHING IS UNLABORED. NO ACUTE CHANGES NOTED. VSS. BED IN LOWEST POSITON WITH CALL LIGHT IN REACH. WILL CONTINUE TO MONITOR AND REPORT TO ONCOMING RN.
--- NOTE | 2020-08-07 09:11 | NUR ---
PT REMAINS ASLEEP . MEDS WILL BE HELD UNITL PT AWAKES.
--- NOTE | 2020-08-07 17:31 | NUR ---
PT HAS RESTED ALL SHIFT. HE WAS UP IN CHAIR FOR MEALS. HE IS CONFUSED BUT PLEASANT WITH STAFF. PT WAS STRAIGHT CATHED THIS SHIFT BLADDER SCAN WAS GREATER THAN 700. PT HAS HAD NO COMPLAINTS OR ACUTE CHANGES THIS SHIFT. CALL LIGHT WITHIN REACH .
--- NOTE | 2020-08-07 21:45 | NUR ---
PT A/O X0. FEVER OF 100.3 TEMPORAL. TYLENOL GIVEN. ROOM TEMP TURNED DOWN. PO FLUIDS GIVEN. WILL RE-ASSESS.
--- NOTE | 2020-08-08 06:25 | NUR ---
green chain marker summary pt a/ox 0. slept most of the night. bladder scanned this shift with a 218ml. pt is very stiff and needs max assistance to reposition. repositioned throughout the night. no longer feverish after tylenol given. vss. bed alarm on, call light within reach.
[2020-08-08 15:55] LABS: Source, Urine Clean Catch
[2020-08-08 16:01] LABS: Appearance, Urine Hazy (Clear); Bilirubin, Urine Neg (Neg); Blood, Urine Neg (Neg); Color, Urine Yellow (P-Yellow); Glucose Qualitative, Urine Neg (Neg); Ketones, Urine Neg (Neg); Leukocyte Esterase, Urine Neg (Neg); Nitrite, Urine Neg (Neg); Protein, Urine 1+ (Neg); Urobilinogen, Urine NORM (Normal)
[2020-08-08 16:13] LABS: Mucus Light (0-Heavy)
[2020-08-08 16:14] LABS: Bacteria Many /hpf; Squamous Epithelial Cells Few /hpf (Few)
--- NOTE | 2020-08-08 17:45 | NUR ---
PT REMAINS CONFUSED . PT RETAINING URINE, OLIVAREZ PLACED. NO ACUTE CHANGES.
--- NOTE | 2020-08-09 05:44 | NUR ---
SHIFT SUMMARY PT IS AN 80 Y/O MALE, ADMITTED FOR AGITATION. PT IS A&O X 0, WITH ADVANCED DEMENTIA. HE DOES NOT FOLLOW COMMANDS, BUT HAS BEEN CALM DURING THIS SHIFT. NO S/S OF PAIN OR DISTRESS. VITAL SIGNS STABLE. PT SLEPT WELL THROUGH THE NIGHT. WILL CONTINUE TO MONITOR AND TREAT PER EMAR UNTIL HAND OFF TO DAY SHIFT RN.
--- NOTE | 2020-08-09 16:21 | NUR ---
SUMMARY PT HAS HX DEMENTIA, HE IS UNABLE TO CONVERSE, SPEECH NONSENSICAL, RAMBLING. HE HAS SPENT THE DAY BUSILY FIDGETING w OBJECTS SUCH ACTIVITY BELT OR LINENS, MUMBLING TO HIMSELF OR COUNTING REPEATEDLY. HE HAS BEEN CALM T/O DAY. WE HAVE ASSISTED HIM TO CHAIR FOR MEALS, HE REQUIRES ASSIST TO EAT OR DRINK. 2 ASSIST TO CHAIR w GB, WEAK/UNSTEADY. OLIVAREZ CATH PLACED YESTERDAY D/T URINARY RETENTION, DRNG CLEAR YELLOW URINE. VSS. AWAITING SAFE/APPROP PLACEMENT.
--- NOTE | 2020-08-10 05:25 | NUR ---
SHIFT SUMMARY PT IS AN 80 Y/O MALE, ADMITTED FOR AGITATION. HE IS A&O X 0, WITH ADVANCED DEMENTIA, ON BEDREST. PT MUMBLES TO HIMSELF WHILE AWAKE, AND DOES NOT RESPOND TO QUESTIONS. NO S/S OF PAIN, SOB OR DISTRESS. VITAL SIGNS STABLE. NO ACUTE CHANGES IN PT CONDITION NOTED DURING THE NIGHT. WILL CONTINUE TO MONITOR AND TREAT PER EMAR UNTIL HAND OFF TO DAY SHIFT RN.
--- NOTE | 2020-08-10 14:58 | NUR ---
SUMMARY PT CONTINUES TO AWAIT PLACEMENT. NO ISSUES TODAY. HE HAS HX DEMENTIA, SPEECH FOR THE MOST PART NONSENSICAL, HE IS ABLE TO ANSWER SOME VERY BASIC QUESTIONS, STATED "FEEL OK I GUESS" THIS AM. HE CONTINUES TO BUSY HIMSELF T/O DAY FIDGETING w OBJECTS SUCH, @ X'S FIXATED/ANXIOUS. GAVE PRN SEROQUEL X1 TODAY TO HELP HIM RELAX. REQUIRES ASSIST TO EAT/DRINK, APPETITE GOOD. OLIVAREZ CATH FOR RETENTION PATENT/DRNG CL YELLOW URINE. HE HAS BEEN UP IN CHAIR HALF THE DAY, UP w 2 ASSIST D/T CONFUSION. VSS.
--- NOTE | 2020-08-11 04:14 | NUR ---
SHIFT SUMMARY PATIENT HAD NO ACUTE CHANGES OBSERVED. AXO TO SELF AND UP IN CHAIR AT SHIFT CHANGE. TAKES MEDICATION CRUSHED IN APPLE SAUCE. NO IV ACCESS. OLIVAREZ PATENT AND DRAINING FOR RETENTION. ONE TO TWO ASSIST TO BSC. VSS/AFEBRILE. DENIES PAIN, SOB, AND N/V. NON-SENSICAL SPEECH. BUSY WITH ARMS/HANDS AND VEST GIVEN TO FOLD AND FOR ACTIVITY. PATIENT ABLE TO SLEEP MOST OF THE SHIFT. CALL LIGHT IN REACH. BED IN LOWEST POSITION. WILL CONTINUE TO MONITOR UNTIL DAY SHIFT NURSE ASSUMES CARE.
--- NOTE | 2020-08-12 04:58 | NUR ---
SHIFT SUMMARY PATIENT HAD NO ACUTE CHANGES OBSERVED. AXOX TO SELF WITH NON-SENSICAL SPEECH. ONE ASSIST TO BSC. TAKES MEDICATION CRUSHED IN APPLE SAUCE. USES ACTIVITY APRON T/O FIRST PART OF SHIFT. SLEPT MOST OF SHIFT. NO S/SX OF PAIN, SOB, AND N/V. VSS/AFEBRILE. CALL LIGHT IN REACH. BED IN LOWEST POSITION. WILL CONTINUE TO MONITOR UNTIL DAY SHIFT NURSE ASSUMES CARE.
--- NOTE | 2020-08-12 12:31 | NUR ---
NON VERBAL AND WITHDRAWN THIS MORNING. MAKES GOOD EYE CONTACT. NOT FOLLOWING COMMANDS, MOVES ALL EXTREMITIES. ATE 100% OF BREAKFAST. MORE ALERT AT LUNCHTIME. ATE 100% OF LUNCH. UP IN CHAIR NEAR WINDOW WITH BLINDS OPEN. SOME NON-SENSICAL SPEECH, BUT DOES NOT ANSWER ANY QUESTIONS.
--- NOTE | 2020-08-13 04:19 | NUR ---
SHIFT SUMMARY PATIENT HAD NO ACUTE CHANGES OBSERVED. NON-SENSICAL SPEECH WITH A FEW WORDS MIXED IN AT TIMES. AXO TO SELF AND TWO ASSIST TO BSC/CHAIR. OLIVAREZ PATENT AND DRAINING TO GRAVITY. TAKES MEDICATION CRUSHED IN APPLE SAUCE. NO IV ACCESS. VSS/AFEBRILE. NO S/SX OF PAIN, SOB, AND N/V. NOT ABLE TO ANSWER QUESTIONS. USES ACTIVITY VEST T/O SHIFT STAYING BUSY. CALL LIGHT IN REACH. BED IN LOWEST POSITION AND ALARM ACTIVATED. WILL CONTINUE TO MONITOR UNTIL DAY SHIFT NURSE ASSUMES CARE.
--- NOTE | 2020-08-13 16:36 | NUR ---
PT IS ALERT, ORIENTED TO SELF ONLY, PT DENIES ANY PAIN, THE PT IS UP WITH MINIMAL TO MODERATE ASSIST AT TIMES, THE PT DENIES ANY PAIN , THE PT WAS UP IN THE CHAIR TODAY FOR BREAKFAST AND LUNCH SO FAR, THE PT APPEARS TO BE BREATHING EASILY ON RA, THE PT HAS BEEN WORKING WITH AN ACTIVITY VEST CONTINUOSLY T/O THE DAY AND SPEAKING NONSENSICALY T/O THE DAY, BED ALARM AND CHAIR ALARM INUSE, CALL LIGHT IN REACH, WILL CONTINUE TO MONITOR FOR CHANGES
--- NOTE | 2020-08-14 07:17 | NUR ---
PT admitted with dementia with aggitation continues to be disoriented & very busy with busy vest while awake with vocalizations accompany hand movements repetitive. Took meds crushed in applesauce needed fed every bite will not hold cups. aspiration precautions. Slightly agressive when turned side to side very stiff & rigid.
--- NOTE | 2020-08-14 17:58 | NUR ---
PT IS ALERT, DISORIENTED, UP WITH ASSIST, THE PT WAS UP IN THE CHAIR FOR MEALS TODAY, THE PT APPEARS TO BE BREATHING EASILY ON RA, THE PT CONTINUES TO HAVE NONSENSICAL SPEECH, PT DENIED ANY PAIN, CALL LIGHT IN REACH, BED AND CHAIR ALARM IN USE T/O THE DAY
--- NOTE | 2020-08-15 06:18 | NUR ---
Pt not interested in busy vest this shift, involved with twisting bed sheet & counting repeatedly while awake. No attempts to climb out of bed. Poor bed mobility. Poor oral intake will not hold cup or attempt to feed self. Stiff rigid while in bed but able to get up to bedside report per day RN report Aubrey. Continues with montero cath patent & draining small amts of clear pal urine. Medicated for rt shoulder pain at HS with PT sleeping most of night. PT is but unable to care for him & discharge planning continues. No agression to staff.
--- NOTE | 2020-08-15 17:58 | NUR ---
SHIFT SUMMARY: NO ACUTE EVENTS. ALERT, NOT ORIENTED, DOES NOT FOLLOW SIMPLE DIRECTIONS. REQUIRES FEEDING ASSISTANCE. OLIVAREZ DRAINING ADEQUATE URINE. NO BEHAVIORS REQUIRING RESTRAINTS. TALKS NONSENSICALLY, SINGS AT TIMES. VISITED FOR A SHORT TIME TODAY.
--- NOTE | 2020-08-16 18:35 | NUR ---
PATIENT FORCIBLY TORE OLIVAREZ CATHETER IN HALF, WITH HALF LEFT IN PENIS. THIS AUTHOR WAS ABLE TO PULL BACK MEATUS SLIGHTLY AND RETRIEVE REMAINING CATHETER PIECE. HEAD OF PENIS IS REDDENED, VERY SMALL AMT BLOOD AT TIP. STOOD PATIENT AND ATTEMPTED TO USE URINAL, BUT PT UNABLE TO VOID. SMALL WOUND NOTED AT MEATUS. CALLED DR. HAMMONDS TO REPOR THIS INCIDENT; PROVIDER STATED TO ALLOW PATIENT TO VOID ON HIS OWN FOR NOW AND IF HE HAS TROUBLE, OK TO REPLACE OLIVAREZ.
--- NOTE | 2020-08-16 19:31 | NUR ---
SHIFT SUMMARY: AGITATED AND RESTLESS MOST THIS SHIFT, REQUIRED PRN DOSE OF SEROQUEL THIS AFTERNOON, WHICH HELPED VERY LITTLE. IMPULSIVE, DOES NOT FOLLOW DIRECTIONS. NEEDS FEEDING ASSISTANCE AND ENCOURAGEMENT TO TAKE PO FLUIDS. REFUSING TO WEAR CLOTHING, TRIES TO TAKE ATTENDS OFF. MUTTERING AND BUSY WITH HIS HANDS CONSTANTLY. NO OLIVAREZ, HAD BM USING BSC. AMBULATING WITH ASSISTANCE.
--- NOTE | 2020-08-17 04:37 | NUR ---
NEWS DIRECTOR SUMMARY ALERT AND ORIENTED TO SELF ONLY. APPEARED TO SLEEP MOST OF SHIFT. SPEECH CONTINUES TO BE NONSENSICAL. VSS. NO ACUTE CHANGES AT THIS TIME. BED IN LOWEST POSITION WITH CALL LIGHT IN REACH. WILL CONTINUE TO MONITOR AND REPORT TO ONCOMING RN.
--- NOTE | 2020-08-17 17:06 | NUR ---
PT HAS BEEN SOMEWHAT BUSY TODAY. IN CHAIR WITH ALARM AND IN LOUNGE PRABHA WITH ALARM . FUSSING WITH BLANKETS BUSY WITH BUTTON VEST. MED WITH SEROQUEL THIS AFT. HE IS REPETITIVE RHYMING CHANTING MUCH. NO COHERANT TALK. HAS BEEN FEED WITH ASSSITANCE TODAY. NO NEW CONCERNS AT THIS TIME . BED IN LOW POSITION, CALL LITE IN REACH, BED ALARM ON FOR SAFETY, ON CAMERA FOR IMPULSIVITY AND SAFETY
--- NOTE | 2020-08-18 05:24 | NUR ---
SHIFT SUMMARY- PT. CONFUSED IN CHAIR PART OF THE NIGHT. ASSISTED BACK INTO BED WHERE HE SLEPT THE REST OF THE SHIFT. PT. DID NOT VOID DURING THE NIGHT. BLADDER SCAN DONE WITH RESULT OF >418MLS. NOTIFIED HOSPITALIST DR. MANCILLA. RECEIVED ORDER FOR STRAIGHT CATH X1 AND BLADDER SCAN IN 6HRS. PERFORMED CATH PER ORDER WITH AN OUTPUT OF 500MLS, TOLERATED WELL. PT. APPEARS TO BE RESTING COMFORTABLY IN BED, NO APPARENT DISTRESS NOTED. CALL LIGHT WITHIN REACH, SIDE RAILS UPX2, AND BED ALARM ON FOR SAFETY. WILL CONT TO MONITOR.
[2020-08-18 16:52] LABS: Source, Urine Catheter
[2020-08-18 16:59] LABS: Appearance, Urine Hazy (Clear); Bilirubin, Urine Neg (Neg); Blood, Urine Neg (Neg); Color, Urine Yellow (P-Yellow); Glucose Qualitative, Urine Neg (Neg); Ketones, Urine Neg (Neg); Leukocyte Esterase, Urine 1+ (Neg); Nitrite, Urine Neg (Neg); Protein, Urine Neg (Neg); Urobilinogen, Urine NORM (Normal)
[2020-08-18 17:18] LABS: Bacteria Few /hpf; Red Blood Cells, Urine 0-2 /hpf (0-2); Squamous Epithelial Cells Rare /hpf (Few)
--- NOTE | 2020-08-18 17:27 | NUR ---
SHIFT SUMMARY PATIENT ORIENTED ONLY TO SELF. PATIENT RESTING QUIETLY PLAYING WITH BUSY APRON FIRST PART OF DAY. PATIENT AGITATED IN AFTERNOON. GIVEN PRN SEROQUEL. PATIENT ABLE TO URINATE ONCE THIS MORNING BUT WITH 400MLS POST VOID RESIDUAL. PATIENT UNSUCCESFULLY ATTEMPTED TO URINATE TWICE IN THE AFTERNOON. CALL TO DR. HAMMONDS, NEW ORDERS FOR OLIVAREZ CATHETER. OLIVAREZ PATENT AND DRAINING. PATIENT EATING AND DRINKING WELL. WALKED BRIEFLY IN HALLWAY WITH STAFF THIS AFTERNOON.
--- NOTE | 2020-08-19 05:39 | NUR ---
SHIFT SUMMARY- NO ACUTE CHANGES OVERNIGHT. PT. ASLEEP T/O THE SHIFT, NO APPARENT DISTRESS NOTED. NO COMPLAINTS DURING THE NIGHT. OLIVAREZ CATHETER PATENT AND DRAINING. CALL LIGHT WITHIN REACH, SIDE RAILS UPX2, AND BED ALARM ON. WILL CONT TO MONITOR.
--- NOTE | 2020-08-19 17:43 | NUR ---
SHIFT SUMMARY PATIENT ORIENTED TO SELF. PLAYING WITH ACTIVITY APRON MOST OF SHIFT. UP FOR WALK IN HALLWAY THIS AFTERNOON. OLIVAREZ PATENT AND DRAINING. BEDBATH TODAY. NO BM FOR [address] HAMMONDS, NEW ORDERS FOR BOWEL CARE GIVEN. FLEET ENEMA IF NO BM BY TOMORROW. EATING AND DRINKING WELL.
--- NOTE | 2020-08-20 04:18 | NUR ---
SHIFT SUMMARY- PT. AWAKE IN BED EARLY IN THE EVENING PLAYING WITH ACTIVITY APRON. SCHEDULED MEDS GIVEN W/O DIFFICULTY. PER DAY RN HAD LARGE BM YESTERDAY EVENING. PT. ASLEEP THE REST OF THE NIGHT. NO APPARENT DISTRESS NOTED. VSS. CALL LIGHT WITHIN REACH, SIDE RAILS UPX2, AND BED ALARM ON FOR SAFETY. WILL CONT TO MONITOR.
--- NOTE | 2020-08-20 19:14 | NUR ---
SHIFT SUMMARY: NO ACUTE EVENTS TO REPORT THIS SHIFT. HX DEMENTIA; ORIENTED TO SELF; PLEASANTLY CONFUSED. NO C/O PAIN THIS SHIFT. SEROQUEL PRN FOR AGITATION; NO AGITATION THIS SHIFT. ASPIRATION PRECAUTIONS; ST DIRECTIONS ON ROOM BOARD. OLIVAREZ FOR RETENTION; PATENT & DRAINING. AWAITING PLACEMENT. REPORT GIVEN TO ONCOMING RN.
--- NOTE | 2020-08-20 19:15 | NUR ---
ASSUMED CARE. JAXON WAS GETTING UP FROM HIS CHAIR. COMPRESSOR STATION OPERATOR AND I GOT HIM TO HIS BED. HE TRIED TO TUG ON HIS CATHETER FROM UNDERNEATH HIS PANTS. WE TUCKED IT DOWN OUT OF SIGHT AND COVERED WITH BLANKET. GAVE HIM ACTIVITY APRON TO DO. VERY CONFUSED, MUBLING, ONLY ANSWERS HIS NAME. FOLLOWS DIRECTION PART OF THE TIME. CATHETER IS PATIENT AND DRAINING. LUNG SOUNDS DIMINISHED. BED ALARM IS ON. WILL CONTINUE TO MONITOR.
--- NOTE | 2020-08-21 05:15 | NUR ---
SHIFT SUMMARY: JAXON IS PLEASANTLY CONFUSED, ORIENTED TO SELF ONLY. FOLLOWS DIRECTIONS SOME OF THE TIME. KEPT SELF BUSY TYING KNOTS ALL NIGHT TILL HE FELL ASLEEP. TOOK MEDS CRUSHED IN APPLESAUCE AND THICKEN JUICE. CATHETER REMAINED PATENT AND DRAINING YELLOW URINE. VS WNL, AFEBRILE. NO ACUTE CHANGES THIS SHIFT. BED ALARM ON AND CALL LIGHT IN REACH.
--- NOTE | 2020-08-21 19:08 | NUR ---
SHIFT SUMMARY: NO ACUTE CHANGES TO REPORT THIS SHIFT. PT ALERT; CONFUSED. NO C/O PAIN. OLIVAREZ PATENT & DRAINING. AWAITING PLACEMENT. REPORT GIVEN TO ONCOMING RN.
--- NOTE | 2020-08-21 19:40 | NUR ---
ASSUMED CARE. PLEASANTLY CONFUSED. NO CHANGES TODAY. LAYING IN BED KEEPING SELF ENTERTAINED WITH ACTIVITY APROM, TALKING TO SELF. VS WNL, AFEBRILE. DOES NOT RESPOND TO QUESTIONS OR WHEN TALKING TO HIM/ DOES NOT FOLLOW DIRECTIONS AT THIS TIME. CALL LIGHT IS IN REACH BUT WILL NOT USE. BED ALARM IS ON, AND SIDE RAILS X3 UP.
[2020-08-22 04:41] LABS: BASOPHILS ABSOLUTE AUTO 0.08 K/mm3 (0.00-0.23); BASOPHILS PERCENT AUTO 1 % (0-2); EOSINOPHILS ABSOLUTE AUTO 0.52 K/mm3 (0.00-0.68); EOSINOPHILS PERCENT AUTO 8 % (0-6); Hematocrit 37.1 % (37.0-53.0); Hemoglobin 11.7 g/dL (13.5-17.5); IMMATURE GRAN ABSOLUTE AUTO 0.02 K/mm3 (0.00-0.10); IMMATURE GRAN PERCENT AUTO 0 % (0-1); LYMPHOCYTES ABSOLUTE AUTO 1.45 K/mm3 (0.84-5.20); LYMPHOCYTES PERCENT AUTO 24 % (21-46); MONOCYTES ABSOLUTE AUTO 0.77 K/mm3 (0.16-1.47); MONOCYTES PERCENT AUTO 13 % (4-13); Mean Corpuscular HGB Conc 31.5 g/dL (31.5-36.5); Mean Corpuscular Volume 86 fL (80-100); Mean Platelet Volume 9.2 fL (9.1-12.4); NEUTROPHILS ABSOLUTE AUTO 3.32 K/mm3 (1.96-9.15); NEUTROPHILS PERCENT AUTO 54 % (41-73); Platelet Count 303 K/mm3 (150-400); RDW Coefficient Variation 15.8 % (11.7-14.2); RDW Standard Deviation 49.6 fL (35.1-46.3); Red Blood Cell Count 4.33 M/mm3 (4.30-5.90); White Blood Cell Count 6.16 K/mm3 (4.00-11.30)
[2020-08-22 04:57] LABS: Anion Gap 6 mmol/L (6-16); Blood Urea Nitrogen 16 mg/dL (8-24); Bun/Creatinine Ratio 14.5 (12.0-20.0); CO2, Blood 27 mmol/L (21-32); Calcium, Blood 8.1 mg/dL (8.5-10.1); Chloride, Blood 109 mmol/L (98-108); Glomerular Filtration Rate >60 (60-); Glucose, Blood 81 mg/dL (70-99); Sodium, Blood 142 mmol/L (136-145)
--- NOTE | 2020-08-22 05:20 | NUR ---
SHIFT SUMMARY: JAXON HAD AN UNEVENTFUL NIGHT. DID HIS NORMAL ROUTINE OF ENTERTAINING SELF WITH ACTIVITY APRON. FELL ASLEEP AFTER MEDS AND SLEPT GOOD THROUGHOUT THE NIGHT. VS WNL, AFEBRILE. NO ACUTE CHANGES. BED ALARM ON , CALL LIGHT IN REACH.
--- NOTE | 2020-08-22 17:27 | NUR ---
SUMMARY- PT SLEPT LATE THIS UNTIL 1030, DR OCONNORTRATE AWOKE PT TO ASSESS. PT THAN TOOK AM MEDS CRUSHED AND ATE BREAKFAST. TOLERATING THICK LIQ. PT GOT UP TO CHAIR. AWAKE AND FIDGITING WITH ACTIVITY BLANKETS ALL DAY. OCC STANDS UP TO SET OFF CHAIR ALARM, BUT IS STEADY AND HOLDS FURNATURE. PT REDIRECTS EASY. HAD MULT STOOLS THIS PM AFTER MIRILAX THIS AM. FORMED AT FIRST THAN 3 MORE SEMIFORMED ORANGE. HAS OLIVAREZ CATH AND IT GOT PULLED A FEW TIMES WHEN HE STRETCHED IT TRYING TO GET TO BATHROOM. NO TRAUMA NOTED. PT TOLERATING PUREED FOOD, IS A FEEDER. PT MUMBLING RHYMES TO SELF AND FIDGITS WITH BLANKETS MOST OF THE DAY. WILL REPORT TO MIKAEL BROCK.
--- NOTE | 2020-08-23 07:16 | NUR ---
BURNISHING MACHINE OPERATOR SUMMARY Reyes had a quiet night waking only to be repositioned. no sign or complaint of pain or discomfort noted overnight.Lung sounds quiet as patient did not understand command to take deep breaths when being assessed. Alert to self only. Patient would just speak gibberish to himself when awake. Draining clear yellow urine in montero catheter..
--- NOTE | 2020-08-23 17:39 | NUR ---
SHIFT SUMMARY PT A/O X1 AND VERY CONFUSED. THE PT SPEAKS GIBBERISH TO HIMSELF WHILE AWAKE AND IS UNABLE TO ANSWER MOST QUESTIONS. HE GET UP IMPULSIVELY AND HAS A BED/CHAIR ALARM. HIS STOOL SOFTENERS WERE HELD THIS MORNING DUE TO HIM HAVING SEVERAL LOOSE BMS TODAY AND LAST NIGHT. HIS CATHETER BAG WAS CHANGED TO A LEG BAG DUE TO THE PT IMPULSIVELY GETTING UP. 1-2 PERSON TO GET HIM UP AND 2 TO CHANGE HIM IN THE BED. PT IS CONT/INCONT. PT IS KEPT OCCUPIED BY ACTIVITY APRON. MEDS CRUSHED IN APPLE SAUCE. PUREE DIET AND NECTAR THICK LIQUIDS. VSS; WCTM.
--- NOTE | 2020-08-24 04:02 | NUR ---
SALES LEAD GENERATOR SUMMARY [place] and 4 rails were placed at 2100 for Reyes's safety. He actually got out of recliner chair while leg rest was still up. Reyes, who is quite strong was able to hold this RN back from being able to safely put him back in bed. once help arrived, patient was held while legrest was put down and bed made accessible , then patient was helped to bed. Not two minutes after, patient had his legs on the floor before staff could get to him . was called, and josé antonio vest and 4 rails were placed. After about an hour of wearing the josé antonio, the patient was playing with the activity blanket, mumbling and slowly falling asleep. He slept off and on and occasionally throwing one or the other foot over the rail. Never agitated or combative with staff.
--- NOTE | 2020-08-24 16:50 | NUR ---
SHIFT SUMMARY PT A/O X1 AND IMPULSIVE. THE PT HAS BEEN UP MULTIPLE TIMES TO USE THE BSC AND TRIES TO PULL ON OLIVAREZ CATHETER. THE PT IS VERY CONFUSED. TAKES MEDICATIONS CRUSHED IN APPLE SAUCE. MEDICATED WITH SEROQUEL PRN. THE PT SPEAKS TO HIMSELF IN [facility]. 2-3 PERSON ASSIST TO GET UP AND TO CHANGE IN BED. THE PT CAN BE VERY RIGID AND DOES NOT OBEY INSTRUCTIONS. VSS. WCTM.
--- NOTE | 2020-08-25 06:22 | NUR ---
SHIFT SUMMARY PATIENT ALERT AND ORIENTED TO SELF ONLY. HE SPENDS MOST OF HIS TIME WITH A BUSY APRON MUTTERING NONSENSICAL THINGS TO HIMSELF. HE HAD NO COMPLAINS OF PAIN OR DISCOMFORT AND SLEPT WELL OVERNIGHT. BED IN LOWEST POSITION WITH WHEELS LOCKED AND ALARM ON. CALL LIGHT WITHIN REACH. REPORT GIVEN TO ONCOMING RN.
--- NOTE | 2020-08-25 17:41 | NUR ---
NO CHANGES PT ONLY AOX1 AND VERY CONFUSED. PT HAS BEEN GOTTEN UP INTO CHAIR. PT IS VERY HARD TO REDIRECT WHEN HE GETS UP. PT CAN ABMULATE, BUT NEEDS TO BE A ONE PERSON TO SOMETIMES TO PERSON TO TRANSFER JUST DUE TO BEING RESISTANT AT TIMES TO DIRECTION. BED AND CHAIR ALARMS IN USE WELL A BUSY APRON TO KEEP HIM BUSY WITH HIS HANDS. NO DISTRESS NOTED A THIS TIME WILL CONTINUE TO MONITOR.
[2020-08-26 05:09] LABS: BASOPHILS PERCENT AUTO 1 % (0-2); EOSINOPHILS ABSOLUTE AUTO 0.65 K/mm3 (0.00-0.68); EOSINOPHILS PERCENT AUTO 9 % (0-6); Hematocrit 39.8 % (37.0-53.0); Hemoglobin 12.4 g/dL (13.5-17.5); IMMATURE GRAN ABSOLUTE AUTO 0.01 K/mm3 (0.00-0.10); IMMATURE GRAN PERCENT AUTO 0 % (0-1); LYMPHOCYTES ABSOLUTE AUTO 1.94 K/mm3 (0.84-5.20); LYMPHOCYTES PERCENT AUTO 27 % (21-46); MONOCYTES ABSOLUTE AUTO 0.98 K/mm3 (0.16-1.47); MONOCYTES PERCENT AUTO 14 % (4-13); Mean Corpuscular HGB 26.7 pg (26.0-34.0); Mean Corpuscular HGB Conc 31.2 g/dL (31.5-36.5); Mean Corpuscular Volume 86 fL (80-100); Mean Platelet Volume 9.6 fL (9.1-12.4); NEUTROPHILS ABSOLUTE AUTO 3.44 K/mm3 (1.96-9.15); NEUTROPHILS PERCENT AUTO 48 % (41-73); Platelet Count 344 K/mm3 (150-400); RDW Coefficient Variation 16.4 % (11.7-14.2); RDW Standard Deviation 51.2 fL (35.1-46.3); Red Blood Cell Count 4.64 M/mm3 (4.30-5.90); White Blood Cell Count 7.12 K/mm3 (4.00-11.30)
[2020-08-26 05:31] LABS: Bun/Creatinine Ratio 14.7 (12.0-20.0); Calcium, Blood 8.7 mg/dL (8.5-10.1); Creatinine, Blood 1.29 mg/dL (0.60-1.20); Potassium, Blood 4.7 mmol/L (3.5-5.5)
--- NOTE | 2020-08-26 06:18 | NUR ---
SHIFT SUMMARY PATIENT ATTEMPTED TO GET OUT OF BED TWICE TOWARDS THE BEGINNING OF SHIFT. IT IS DIFFICULT TO REDIRECT HIM BACK INTO BED DUE TO THE LEVEL OF HIS CONFUSION. BED IN LOWEST POSITION WITH WHEELS LOCKED AND ALARM ON. CALL LIGHT WITHIN REACH. REPORT GIVEN TO ONCOMING RN.
--- NOTE | 2020-08-26 17:56 | NUR ---
PT AOX1 AND DOES NOT CALL. NO NOTED CHANGES PT WANTS TO USE HANDS CONSTANTLY AND WILL WORK HIS BUSY APRON ALL DAY. PT TAKES EXTRA CARE TO REDIRECT HE RESIST DIRECTION. BED AND CHAIR ALARM IN USE. WILL CONTINUE TO MONITOR.
[2020-08-27 05:31] LABS: Albumin, Blood 2.5 g/dL (3.4-5.0); Anion Gap 4 mmol/L (6-16); Blood Urea Nitrogen 20 mg/dL (8-24); Bun/Creatinine Ratio 18.7 (12.0-20.0); CO2, Blood 29 mmol/L (21-32); Calcium, Blood 8.4 mg/dL (8.5-10.1); Chloride, Blood 111 mmol/L (98-108); Creatinine, Blood 1.07 mg/dL (0.60-1.20); Glomerular Filtration Rate >60 (60-); Glucose, Blood 79 mg/dL (70-99); Phosphorus, Blood 3.5 mg/dL (2.5-4.9); Potassium, Blood 3.7 mmol/L (3.5-5.5); Sodium, Blood 144 mmol/L (136-145)
--- NOTE | 2020-08-27 06:04 | NUR ---
SHIFT SUMMARY PATIENT ALERT AND CONTENT TO MUMBLE TO SELF WHILE FIDDLING WITH A BUSY APRON WHILE AWAKE. THIS RN PLACED AN IV IN THE PATIENT'S LEFT UPPER ARM IN ORDER TO INFUSE NORMAL SALINE AND ATTEMPTED TO CONCEAL THE LINE FROM THE PATIENT, BUT HE PULLED THE IV ABOUT AN HOUR AFTER THE IV WAS INITIALLY INSERTED. ONCE HE FELL ASLEEP HE SLEPT FOR THE REST OF THE NIGHT. BED IN LOWEST POSITION WITH WHEELS LOCKED AND ALARM ON. CALL LIGHT WITHIN REACH. REPORT GIVEN TO ONCOMING RN.
--- NOTE | 2020-08-27 16:55 | NUR ---
PT DOING WELL CONTINUES TO BE AOX1 AND VERY BUSY WITH HIS HANDS. PT WILL BE IMPULSIVE AND NEED REDIRCTION. PT HAS BEEN ENCOURAGED TO EAT AND SITS IN BED WORKING HIS BUSY APRON CONSTANTLY. PT SITTING IN BED AT THIS TIME WILL CONTINUE TO MONITOR BED ALARM IN PLACE. OLIVAREZ RUNNING AT THIS TIME. WILL CONTINUE TO MONITOR.
--- NOTE | 2020-08-28 04:59 | NUR ---
SUMMARY: PT CONTINUES VERY CONFUSED, A/O TO SELF ONLY AND IMPULSIVE NEEDING FREQUENT REDIRECTION. BED ALARM ON FOR FALL RISK. HE'S VERY FIGITY W/OLIVAREZ CATHETER CONSEALED AND ACTIVITY APRON PROVIDED FOR DISTRACTION. HE OCCASIONALLY ANSWERS SOME SIMPLE QUESTIONS CORRECTLY BUT MOSTLY MUTTERS AND MUMBLES INCOHERENTLY. NO S/S PAIN OR DISTRESS. TURN SCHEDULE MAINTAINED BUT PT IS VERY STIFF/RESISTANT TO REPOSITIONING. HE SAT IN HIS CHAIR FOR A BIT TONIGHT THEN WAS ASSISTED BACK TO BED W/WARM BLANKET PROVIDED. HE HAS BEEN SLEEPING QUIETLY SINCE. OLIVAREZ IS PATENT/DRAINING AND PILLS CRUSHED IN APPLESAUCE. NO ACUTE CHANGES, VSS/AFEBRILE. [facility] AT 1000. WCTM AND REPORT TO DAY RN.
[2020-08-28] MEDS ORDERED: ACET325 PO (09:25)
[2020-08-28] MEDS ORDERED: ALBU2.5V5 INH (09:26)
[2020-08-28] MEDS ORDERED: Aspir 8181 MG PO (09:27)
[2020-08-28] MEDS ORDERED: DOCU LIQUI50 MG/5 ML (09:29)
[2020-08-28] MEDS ORDERED: GABA800 PO (09:30)
[2020-08-28] MEDS ORDERED: FINA5 PO (09:30)
[2020-08-28] MEDS ORDERED: IRBE150 (09:31)
[2020-08-28] MEDS ORDERED: MIRALAX17 GM PO (09:32)
--- NOTE | 2020-08-28 11:00 | NUR ---
Discharge Summary A/O to self. Patient discharged to [facility]. Report called and given to receiving VINOD Aceves @ [phone] ext. [phone]. Patient has aspiration risk and diet is puree, nectar thick, feeder, no straws, and meds crushed in applesauce. Full weight bearing c 1P/gait for ambulation. Speech is mumbled. L/S coarse and moist. Discharged with montero catheter for retention. COVID negative as of this morning. Personal belongings sent with patient to the [facility] except upper dentures. Transport here to bead picker patient @ 1100 with w/c, discharge packet given to highway truck driver.
== END 2020-08-28 11:04 ==
LOC: ER 20:14 → MEDS 20:15
PROVIDERS: Emergency Medicine; Family Medicine; Internal Medicine; ADMIT Internal Medicine
DX: G30.9 Alzheimer's disease, unspecified (principal); F02.81 Dementia in other diseases classified elsewhere, unspecified severity, with behavioral disturbance; N39.0 Urinary tract infection, site not specified; B95.2 Enterococcus as the cause of diseases classified elsewhere; L03.113 Cellulitis of right upper limb; R09.02 Hypoxemia; J44.9 Chronic obstructive pulmonary disease, unspecified; N40.1 Benign prostatic hyperplasia with lower urinary tract symptoms; R33.8 Other retention of urine; K59.00 Constipation, unspecified; E03.9 Hypothyroidism, unspecified; I10 Essential (primary) hypertension; I25.10 Atherosclerotic heart disease of native coronary artery without angina pectoris; I25.2 Old myocardial infarction; G25.81 Restless legs syndrome; R53.1 Weakness; Z20.828 Contact with and (suspected) exposure to other viral communicable diseases; Z23 Encounter for immunization; Z79.82 Long term (current) use of aspirin; Z79.01 Long term (current) use of anticoagulants; Z79.899 Other long term (current) drug therapy; Z85.038 Personal history of other malignant neoplasm of large intestine; Z88.0 Allergy status to penicillin; Z88.5 Allergy status to narcotic agent; Z90.49 Acquired absence of other specified parts of digestive tract; Z96.642 Presence of left artificial hip joint; Z95.0 Presence of cardiac pacemaker; Z87.891 Personal history of nicotine dependence; Z66 Do not resuscitate; Z86.718 Personal history of other venous thrombosis and embolism; Z96.0 Presence of urogenital implants
CPT/HCPCS: 36415; 51701; 51702; 71045; 71046; 76882; 80048; 80053; 80069; 81001; 82607; 82746; 84443; 85025; 86592; 87077; 87086; 87186; 92526; 92610; 93005; 93010; 94760; 96372; 99285-25; A9270; A9270-GY; G0378; G0480; J1630; J1650; J7030; U0004